=== PATIENT | female | born 1980 | race Caucasian/White ===

== ENCOUNTER 2023-03-02 13:10 | Outpatient (CLI) | payer OTHER | END 2023-03-02 13:11 | disposition home or self-care (01) | LOC: CSHMAMMO 13:10 | PROVIDERS: ATTEND Nurse Practitioner Family | DX: Z12.31 Encounter for screening mammogram for malignant neoplasm of breast (principal) | CPT/HCPCS: 77063; 77067 ==

== ENCOUNTER 2024-03-02 08:26 | Outpatient (CLI) | payer OTHER | END 2024-03-02 08:27 | disposition home or self-care (01) | LOC: CSHMAMMO 08:26 | PROVIDERS: ATTEND Physician Assistant | DX: Z12.31 Encounter for screening mammogram for malignant neoplasm of breast (principal) | CPT/HCPCS: 77063; 77067 ==